=== PATIENT | male | born 1945 | race Two or more races ===

== ENCOUNTER 2016-08-16 19:41 | Emergency (ER) | payer OTHER ==
[2016-08-16 20:02] VITALS: BP 150/77
--- NOTE | 2016-08-16 20:38 | UC ---
Abdominal Pain Male HPI - HPI Summary HPI Summary: The patient comes in today for: 1. Abdominal pain: Onset: Last night. Palliative/provocative: Nothing makes it better or worse except Gas-X which helped a little bit. Quality: Cramping. Region: suprapubid to epigastric. Severity: 1/10 at this time. Time: Comes and goes. Associated symptoms: Vomiting: One vomiting episode that he describes as being "eight times." Fevers: 100.6 at 7:30 PM. Diarrhea: None. Generalized weakness: present. He is retired. Others ill around him: None. * - History of Current Complaint Chief Complaint: UCGI Stated Complaint: VOMITING,DIARRHEA Time Seen by Provider: 08/16/16 20:31 Hx Obtained From: Patient, Family/Supervisor Tubing Onset/Duration: Sudden Onset - Allergies/Home Medications Allergies/Adverse Reactions: Allergies Allergy/AdvReac Type Severity Reaction Status Date / Time Sulfa Antibiotics Allergy Rash Verified 08/16/16 19:52 PMH/Surg Hx/FS Hx/Imm Hx Previously Healthy: Yes Endocrine History Of: Denies: Diabetes, Thyroid Disease, Hyperthyroidism, Hypothyroidism, Dyslipidemia Cardiovascular History Of: Denies: Cardiac Disorders, Hypertension, Pacemaker/ICD, Myocardial Infarction , Congestive Heart Failure, Atrial Fibrillation, Deep Vein Thrombosis, Bleeding Disorders Respiratory History Of: Denies: COPD, Asthma, Bronchitis, Pneumonia, Pulmonary Embolism GI/ History Of: Denies: Gastroesophageal Reflux, Ulcer, Gastrointestinal Bleed, Gall Bladder Disease, Kidney Stones, Diverticulitis, Renal Disease, Urosepsis Neurological History Of: Denies: TIA, CVA, Dementia, Seizures, Migraine Psychological History Of: Denies: Anxiety, Depression, Bipolar Disorder, Schizophrenia, Post Traumatic Stress Disorder Cancer History Of: Denies: Lung Cancer, Colorectal Cancer, Breast Cancer, Prostate Cancer, Cervical Cancer Other History Of: Negative For: HIV, Hepatitis B, Hepatitis C, Anticoagulant Therapy - Surgical History Surgical History: Yes Surgery Procedure, Year, and Place: 1983 RIGHT WRIST GANGLION EXCISION, [facility]. [place]UMB [place] [facility] [place]C [place] [facility] [place]. [place] EYE [place] [facility] [place] RIGTH HAND TRIGGER FINGER RELEASE RING [id number]. 10/2015 - Family History Known Family History: Positive: Cardiac Disease, Diabetes Negative: Hypertension - Social History Occupation: Retired Alcohol Use: None Substance Use Type: None Smoking Status (MU): Never Smoked Tobacco - Immunization History Most Recent Tetanus Shot: UTD Review of Systems Constitutional: Negative Skin: Negative Eyes: Negative ENT: Negative Respiratory: Negative Cardiovascular: Negative Gastrointestinal: Abdominal Pain, Vomiting Genitourinary: Negative All Other Systems Reviewed And Are Negative: Yes Physical Exam Triage Information Reviewed: Yes Appearance: Well-Appearing, No Pain Distress, Well-Nourished, Other: - He is slightly slow in his movement, but not remarkably out of the normal range for his age group. Vital Signs: Initial Vital Signs Temp 99.7 F 08/16/16 19:53 Pulse 105 08/16/16 19:53 Resp 18 08/16/16 19:53 BP 150/77 08/16/16 19:53 Pulse Ox 96 08/16/16 19:53 Vital Signs Reviewed: Yes Eyes: Positive: Conjunctiva Clear. Negative: Discharge ENT: Positive: Hearing grossly normal. Negative: Pharyngeal erythema, Nasal congestion, Nasal drainage, TM bulging, TM dull, TM red, Tonsillar swelling, Tonsillar exudate Dental: Negative: Gross Decay/Caries @, Dental Fracture @ Neck: Positive: Supple, Nontender, No Lymphadenopathy. Negative: Nuchal Rigidity Respiratory: Positive: Chest non-tender, No respiratory distress, No accessory muscle use. Negative: Crackles, Wheezing Cardiovascular: Positive: RRR, No Murmur Abdomen Description: Positive: No Organomegaly, Soft. Negative: Nontender - He had mild tenderness to palpation of the epigastric/LUQ area of the abdomen, but no rebound or percussion tenderness., Distended, Guarding, Hepatomegaly Bowel Sounds: Positive: Present Musculoskeletal: Positive: Strength Intact, ROM Intact Neurological: Positive: Alert, Muscle Tone Normal Psychological: Positive: Normal Response To Family, Age Appropriate Behavior, Consolable Skin: Negative: rashes, breakdown Abd Pain Male Course/Dx - Course Course Of Treatment: The patient was told that I don't know for sure what is causing his abdominal. pain. The patient was also told that there are many causes for abdominal pain--. some which are benign and some which are life- threatening. Furthermore, it was. mentioned that the life-threatening causes of abdomianl pain can present with. minimal, atypical, or even no symptoms. Becasue of these facts and the fact. that we don't have here all the testing methods commonly used to assess abdominal. pain, and their timely resuts, the safest thing (and my formal recommendation) is for the patient to go to. the closest [place] [place]. However, my clinical impression (as limited and possibly wrong as it may be due to. no acess to commonly used testing modalities) is that he has gastroenteritis and would recommend anti-spasmodic medication, and increased liquids. He stated that he wanted to do this. - Differential Dx/Clinical Impression Provider Diagnoses: abdominal pain. gastroenteritis Discharge - Discharge Plan Condition: Stable Disposition: AGAINST MEDICAL ADVICE Patient Education Materials: Acute Abdominal Pain (ED), Gastroenteritis (ED) Referrals: Jared Durham MD [Primary Care Provider] - 2 Days (If you are not going to the ER, please increase your clear liquids to keep your urine colorless like water. Take the medication as needed. If you get worse, please re-consider going to the ER.)
== END 2016-08-16 21:09 | disposition left against medical advice (07) ==
LOC: UCEAST 19:41
DX: K52.9 Noninfective gastroenteritis and colitis, unspecified (principal); R10.30 Lower abdominal pain, unspecified; R10.13 Epigastric pain; Z88.2 Allergy status to sulfonamides; Z98.42 Cataract extraction status, left eye
CPT/HCPCS: 81002; 99212; G0463

== ENCOUNTER → 2016-10-13 11:12 | Day surgery (SDC) | payer OTHER ==
[~2016-10-13 11:12] MED LIST: Buffered Lidocaine 1% SYRIN* 3 ML/SYR SYRINGE INTRADERM ONE; Bupivacaine 0.25% SDV* 30 ML ONE; Midazolam* 1 MG/ML 2 ML VIAL (2 MG) ONE; Propofol* 10 MG/ML 20 ML BTL IV PUSH ONE; ceFAZolin 2 GM PREMIX(*) 2 GM/50 ML BAG IVPB ONE; fentaNYL* 50 MCG/ML 2 ML VIAL (100 MCG VIAL) ONE
[2016-10-13 14:53] VITALS: BP 155/93
== END | disposition home or self-care (01) ==
LOC: OREAST 11:12
PROVIDERS: ATTEND Plastic Surgery
DX: M65.351 Trigger finger, right little finger (principal)
CPT/HCPCS: J0690; J2250; J2704; J3010

== ENCOUNTER 2018-10-11 05:31 | Observation (INO) | payer MEDICARE, OTHER ==
[2018-10-03 15:40] LABS: Urine Appearance Cloudy; Urine Bilirubin Negative (Negative); Urine Blood Negative (Negative); Urine Color Yellow; Urine Glucose Negative (Negative); Urine Ketones Negative (Negative); Urine Nitrite Negative (Negative); Urine Protein Negative (Negative); Urine Specific Gravity 1.012 (1.010-1.030); Urine Urobilinogen Negative (Negative)
[~2018-10-11 05:31] MED LIST changes: +Buffered Lidocaine 1% SYRIN* 1 ML/SYRINGE INTRADERM ONE; -Buffered Lidocaine 1% SYRIN* 3 ML/SYR SYRINGE INTRADERM ONE; -Bupivacaine 0.25% SDV* 30 ML ONE; -Midazolam* 1 MG/ML 2 ML VIAL (2 MG) ONE; -Propofol* 10 MG/ML 20 ML BTL IV PUSH ONE; -ceFAZolin 2 GM PREMIX(*) 2 GM/50 ML BAG IVPB ONE; -fentaNYL* 50 MCG/ML 2 ML VIAL (100 MCG VIAL) ONE
[2018-10-11] MEDS ORDERED: Famotidine IV* 10 MG/ML 2 ML (20 mg) ONE (05:45)
[2018-10-11] MEDS ORDERED: ceFAZolin 2 GM in NS PREMIX(*) 2 GM/100 ML BAG IVPB ONE ×2 (05:45→12:35)
[2018-10-11] MEDS ORDERED: Dexamethasone IV* 4 MG/ML 1 ML (4 MG) ONE (05:45)
[2018-10-11] MEDS ORDERED: Buffered Lidocaine 1% SYRIN* 1 ML/SYRINGE INTRADERM ONE (05:46)
[2018-10-11] MEDS ORDERED: Dexamethasone IV* 4 MG/ML 1 ML (4 MG) IV SLOW PU ONE (06:00)
[2018-10-11] MEDS ORDERED: Famotidine IV* 10 MG/ML 2 ML (20 mg) IV ONE (06:00)
[2018-10-11] MEDS ORDERED: Lactated Ringers 1000 ML Bag* 1,000 ML IV SCH ×2 (06:00→15:00)
[2018-10-11] MEDS ORDERED: Bacitracin INJECTION* 50,000 UNITS ONE ×2 (06:39→12:56)
[2018-10-11] MEDS ORDERED: Thrombin 5,000 UNITS* 1 APPLIC KIT - topical use - TOPICAL ONE (06:39)
[2018-10-11] MEDS ORDERED: Lidocaine 1% MPF wEPI 200,000* 30 ML SDV ONE (06:39)
[2018-10-11] MEDS ORDERED: fentaNYL* 50 MCG/ML 5 ML VIAL (250 MCG VIAL) ONE ×2 (07:21→08:24)
[2018-10-11] MEDS ORDERED: Atracurium* 10 MG/ML 10 ML VIAL ONE (07:22)
[2018-10-11] MEDS ORDERED: Midazolam* 1 MG/ML 5 ML VIAL (5 MG) ONE (07:22)
[2018-10-11] MEDS ORDERED: Ondansetron INJ* 2 MG/ML VIAL ONE (07:23)
[2018-10-11] MEDS ORDERED: Propofol* 10 MG/ML 20 ML BTL ONE (07:23)
[2018-10-11] MEDS ORDERED: Lidocaine 2% PF * 5 ML VIAL ONE (07:23)
[2018-10-11] MEDS ORDERED: Succinylcholine* 20 MG/ML 10 ML VIAL ONE (07:23)
[2018-10-11] MEDS ORDERED: EPHEDrine (Pressors)* 50 MG/ML VIAL ONE (07:24)
[2018-10-11] MEDS ORDERED: Phenylephrine 10 MG/ML VIAL* 1 ML VIAL ONE ×2 (09:05→09:06)
[2018-10-11] MEDS ORDERED: Propofol* 1,000 MG/100 ML BTL ONE (09:14)
[2018-10-11] MEDS ORDERED: Propofol* 1,500 MG/150 ML BTL ONE (12:57)
[2018-10-11] MEDS ORDERED: Propofol* 500 MG/50 ML BTL ONE (13:08)
[2018-10-11] MEDS ORDERED: Acetaminophen TAB* 325 MG PO PRN (14:33)
[2018-10-11] MEDS ORDERED: Ondansetron INJ* 2 MG/ML VIAL IV PRN ×2 (14:33→15:43)
[2018-10-11] MEDS ORDERED: Magnesium Hydroxide LIQ* 30 ML UDC PO PRN (14:33)
[2018-10-11] MEDS ORDERED: Cyclobenzaprine TAB* 10 MG PO PRN (14:43)
[2018-10-11] MEDS ORDERED: Morphine INJ* 2 MG/ML 1 ML SYRINGE (TWO MG - NEW SYRINGE VERSION) IV PRN (14:44)
[2018-10-11] MEDS ORDERED: DiMENhydriNATE IV* 50 MG/ML VIAL IV PUSH PRN (15:43)
[2018-10-11] MEDS ORDERED: fentaNYL* 50 MCG/ML 2 ML VIAL (100 MCG VIAL) IV PRN (15:43)
[2018-10-11] MEDS ORDERED: HYDROmorphone INJ1* 1 MG/ML SYRINGE IV PRN (15:43)
[2018-10-11] MEDS ORDERED: Naloxone* 0.4 MG/ML 1 ML VIAL IV PRN (15:43)
[2018-10-12] MEDS: HYDROcodone/ACETAMIN 5-325 MG* 1 TAB PO PRN ×2 (02:36→10:56)
[2018-10-12 09:37] VITALS: BP 115/60
--- NOTE | 2018-10-12 11:01 | OP ---
OPERATIVE REPORT: DATE OF OPERATION: 10/11/18 DATE OF : 43 SURGEON: Aleks Florez MD. [employer] PRINTING MACHINIST: TETE Borrego The case was done with the assistance of surgical PA because of the complexity of the case. ANESTHESIA: General. PRE-OP DIAGNOSES: 1. Degenerative disk disease. 2. Spondylolisthesis. POST-OP DIAGNOSES: 1. Degenerative disk disease. 2. Spondylolisthesis. OPERATIVE PROCEDURE: The patient underwent left L3-4 and left L4-5 MIS TLIF with reexploration of the left L4-5 disk space with iliac crest bone graft through a separate incision, with PEEK interbody cages, autologous iliac bone graft, DBX, and pedicle screws L3, L4, and L5 with intraoperative monitoring and navigation. ESTIMATED BLOOD LOSS: 50 cc. COMPLICATIONS: None. INDICATIONS: The patient is a very pleasant 73-year-old gentleman with a history of previous laminectomies by Dr. Nichole in the past. The patient did initially well but his symptoms recurred. The patient had complaints of severe back pain radiating to both lower extremities, left worse than the right. The patient had intractable pain and was unable to ambulate. An MRI of spine consistent with significant degenerative disk disease and stenosis at L3-4 with stenosis and grade 1 spondylolisthesis at L4-5. The patient failed conservative treatment modalities and was offered the option of surgical intervention. After explaining the expectations, limitations, and possible complications of the procedure with the patient and his with complications including, but not limited to, bleeding, infection, risk of injury to adjacent structures,coma, paralysis, , need for additional procedures, anesthesia risks, stroke, blindness, cancer, instability, hardware failure,adjacent level disease, pseudoarthrosis, spinal fluid leak, the patient was agreeable to proceed with surgery and informed consent was obtained. The patient understood that his condition may not improve, in fact may get worse after surgery and that he may need to have additional procedures in the future. He understood also that operative plan may be modified according to intraoperative findings and conditions and that he may need to have additional procedures in the future and that the procedure may be abandoned or done in more than 1 stages, and he may require prolonged ICU stay with the use of tracheostomy or gastrostomy. DESCRIPTION OF PROCEDURE: The patient was brought to the operating room and was placed under general anesthesia by the anesthesia team. He was carefully positioned prone on the Reji table and all bony prominences were meticulously padded. The skin was prepped and draped in standard fashion. After appropriate surgical pause and patient identification, the previous midline incision was identified. A small incision over the right iliac crest was performed with a #10 surgical blade after the site was infiltrated with local anesthetic. Over a Jamshidi needle and guidewire, a Corex needle was inserted and locally harvested bone graft from the right iliac crest was obtained. Through the same stab wound incision, navigation pin was inserted and secured in place. Then attention was brought to perform an intraoperative O -arm imaging and the patient's data was transferred to the navigation platform. Under stereotactic navigation, the trajectory of the pedicles of L3, L4, and L5 on the skin was marked and 2 paramedian incisions were marked on the skin and infiltrated with local anesthetic. A #10 surgical blade was used to incise the skin, and with the assistance of high- speed drill and awl tip tap, the pedicles were cannulated and 6.5 x 45 Medtronic Voyager ATS screws were placed at the pedicles of L3,4,5. Then attention was brought in order to insert the METRx tubular retractor over a series of dilators. We docked the METRx retractor over the left L3-4 facet. The lamina was then exposed and intraoperative microscope was brought into the field. High-speed drill and Kerrison punches were used to fashion a laminectomy of L3 extending towards the contralateral side in order to perform excellent decompression. After the laminectomy was completed, the ligamentum flavum was gently deflected and was removed with Kerrison punches. Through the laminectomy, the lateral portion of the thecal sac as well as the nerve root were identified and was gently retracted medially and a standard diskectomy was performed after incising the annulus fibrosus with a #15 surgical blade. Space preparation was performed with the use of dilators, pituitary rongeurs, Kerrison punches, and curettes. A 10 x 28 mm Elevate PEEK interbody cage was inserted after being filled with locally harvested bone graft and autograft and after placing into the disk space similar graft material. After insertion of the cage and expansion and after copious irrigation and meticulous hemostasis, the thecal sac and nerve roots were found to be free of any compression phenomena and tubular retractor was gently removed and hemostasis was achieved. Then the process was repeated for the L4-5 disk space. The METRx tubular retractor was introduced and a significant amount of scar tissue was encountered and it was dissected free in order to identify the L4-5 facet and the previous lamina. There were significant mobile segments of the lamina. Then high-speed drill and Kerrison punches were used to expose the thecal sac to perform revision of laminectomy at the left L4. The dissection was also carried out with the use of a series of curettes. A significant amount of scar tissue was encountered at the previous site of the laminectomy. This was dissected very carefully after exposing normal thecal sac at the cephalad and caudal end of the incision. After incising the anulus fibrosus with 15 surgical blade, pituitary rongeurs, Kerrison punches, curettes were used to perform diskectomy in preparation of disk space with use of dilators. After the disk space was prepared, a mixture of the bone graft was inserted as well as an Elevate 8 x 28 mm. After insertion of the cage and after confirmation of meticulous hemostasis, copious irritation, meticulous inspection, the thecal sac as well as the nerve roots was found to be free of any compression element and the tubular retractor was gently removed confirming hemostasis. A #0 Vicryl suture was then used to approximate the fascia defect. Prior to closure, Valsalva maneuver was performed by Anesthesia at both levels, confirmed meticulous hemostasis and the lack of CSF leak. Then attention was brought to insert 2 cobalt chrome rods of appropriate size after sizing the screws on each side. After that the rods were secured with the screw kit caps. Intraoperative O-arm imaging was obtained, which confirmed excellent placement of all hardware. The extension towers as well as inserters were removed as well as the navigation pin and the wounds were copiously irrigated, and after confirmation of meticulous hemostasis and meticulous inspection, they were closed. After approximating the subcutaneous tissue with interrupted 2-0 Vicryl sutures, the skin was covered with Dermabond and sterile dressing. At the end of the procedure, counts were reported correct. The patient remained hemodynamically stable throughout the case. Intraoperative electrophysiological monitoring remained stable and had some improvement at the end of the case. The patient was then turned supine, extubated, and was transferred to Recovery in excellent condition. The case was done with the assistance of surgical PA because of the complexity of the case. [id number]/[facility] #: [id number] MADAI
--- NOTE | 2018-10-12 19:20 | PN ---
Progress Note - Progress Note Date of Service: 10/12/18 SOAP: Subjective: []Patient seen earlier on the floor. No events ON. Patient tolerates procedure well. Preop back pain and LE pain has resolved. Has pain in incision area. Ambulates, Voids. Tolerates Po well. Wants to go home. Objective: []VSS, Afebrile Wounds s,c,d AAOx3 ERIKA, CN II-XII grossly intact Motor 5/5 all extremities Sensory grossly intact to light touch Assessment: []73 yom POD#1 Lt L3-4, L4-5 MIS TLIF Plan: []Monitor VS, Neurochecks OOB with PT DC planning Full instructions were given Neli Florez MD
== END 2018-10-12 16:53 | disposition home or self-care (01) ==
LOC: OR 05:31 → SSU 14:33
PROVIDERS: ADMIT Neurological Surgery; ATTEND Neurological Surgery
DX: M48.062 Spinal stenosis, lumbar region with neurogenic claudication (principal); M47.896 Other spondylosis, lumbar region; M51.36 Other intervertebral disc degeneration, lumbar region; M47.26 Other spondylosis with radiculopathy, lumbar region; M43.16 Spondylolisthesis, lumbar region
CPT/HCPCS: 72100; 76000; 81003; 96372; 96374; 96375; 96376; A9270-GY; G0378; G8978-GP-CI; G8979-GP-CI; G8980-GP-CI; J0330; J0690; J1100; J2001; J2250; J2405; J2704; J3010